=== PATIENT | female | born 1960 | race Caucasian/White ===

== ENCOUNTER 2018-05-12 11:24 | Day surgery (SDC) | payer OTHER ==
[2018-05-11 19:06] VITALS: BMI 24.6
[2018-05-12 12:21] VITALS: BP 147/79; PULSE 82; TEMP 98.4
[2018-05-12] MEDS ORDERED: BENZOIN TINCTURE SWABSTICK TP ONE (13:26)
[2018-05-12] MEDS ORDERED: HEPARIN NA (PORCINE) 5,000 UNITS/ML 1ML VIAL ONE (13:26)
[2018-05-12] MEDS ORDERED: THROMBIN (BOVINE) 5,000 UNIT VIAL TP ONE (13:26)
[2018-05-12 13:56] LABS: HEMATOCRIT 39.5 % (32.4-45.2); HEMOGLOBIN 12.9 GM/dL (10.7-15.3); MCH 28.8 pg (25.7-33.7); MCHC 32.6 g/dl (32.0-36.0); MEAN CELL VOLUME 88.3 fl (80-96); MEAN PLT VOLUME 9.4 fl (7.5-11.1); PLATELET COUNT 301 K/MM3 (134-434); RBC 4.47 M/mm3 (3.60-5.2); RDW 13.8 % (11.6-15.6); WHITE BLOOD COUNT 9.4 K/mm3 (4.0-10.0)
--- NOTE | 2018-05-12 15:57 | PN ---
Progress Note (short form) - Note Progress Note: In full agreement with anesthesiology team, patient's case is cancelled due to insufficient pre-op cardiac workup. Pt. has known history of cardiac event. Pt. will obtain full cardiac clearance as an outpatient and today's surgical case will be re-scheduled. Enrique Arellano MD (Orthopaedic Surgery).
[2018-05-12 16:06] LABS: INR 0.94 (0.83-1.09); PROTHROMBIN TIME (PATIENT) 11.1 SEC (9.7-13.0)
[2018-05-12 16:41] LABS: ALBUMIN 3.9 g/dl (3.4-5.0); ALK PHOS 117 U/L (45-117); ANION GAP 6 MMOL/L (8-16); BILIRUBIN,TOTAL 0.4 mg/dL (0.2-1); BLOOD UREA NITROGEN 13 mg/dL (7-18); CALCIUM 9.2 mg/dL (8.5-10.1); CHLORIDE 107 mmol/L (98-107); CO2 26 mmol/L (21-32); CREATININE 0.5 mg/dL (0.55-1.3); GLUCOSE,RANDOM 111 mg/dL (74-106); POTASSIUM 3.8 mmol/L (3.5-5.1); SGOT/AST 17 U/L (15-37); SGPT/ALT 29 U/L (13-61); SODIUM 139 mmol/L (136-145); TOT PROT 7.5 g/dl (6.4-8.2)
== END 2018-05-12 15:01 | disposition home or self-care (01) | DRG 552 ==
LOC: UNDOADMIN 11:24 → JASUSAT 11:24 → JSAMEDAYSX 11:24 → EDSTATUS 13:15 → JASUSAT 15:01 → UNDODISIN 15:01
PROVIDERS: ATTEND Orthopaedic Surgery Adult Reconstructive Orthopaedic Surgery
PROC: 3E013GC Introduction of Other Therapeutic Substance into Subcutaneous Tissue, Percutaneous Approach (ICD-10-PCS; principal; 2018-05-12)
DX: Z53.8 Procedure and treatment not carried out for other reasons (principal)
CPT/HCPCS: 36415; 80053; 82962; 85027; 85610; 86850; 86900; 86901; J1644

== ENCOUNTER 2018-05-24 10:12 | Inpatient (IN) | payer OTHER ==
[2018-05-20 10:17] VITALS: BMI 24.6
[2018-05-24] MEDS ORDERED: THROMBIN (BOVINE) 5,000 UNIT VIAL TP ONE ×4 (10:56→16:11)
[2018-05-24] MEDS ORDERED: HEPARIN NA (PORCINE) 5,000 UNITS/ML 1ML VIAL ONE (11:17)
[2018-05-24] MEDS ORDERED: SUCCINYLCHOLINE CHLORIDE 200 MG/10 ML VIAL ONE (12:54)
[2018-05-24] MEDS ORDERED: PROPOFOL 20 ML ONE ×15 (12:54→15:31)
[2018-05-24] MEDS ORDERED: fentaNYL CITRATE 250 MCG/5 ML VIAL ONE ×2 (12:54→15:34)
[2018-05-24] MEDS ORDERED: MIDAZOLAM HCL 2 MG/2 ML SINGLE DOSE VIAL ONE (12:59)
[2018-05-24] MEDS ORDERED: ceFAZolin SODIUM 1 GM VIAL IVPB ONE (13:15)
[2018-05-24] MEDS ORDERED: VANCOMYCIN 1,000 MG VIAL (RESTRICTED TO ID ONLY) IVPB ONE (13:15)
[2018-05-24] MEDS ORDERED: ceFAZolin SODIUM 1 GM VIAL ONE ×2 (13:21)
[2018-05-24] MEDS ORDERED: TRANEXAMIC ACID 1000 MG/10 ML VIAL ONE (13:22)
[2018-05-24] MEDS ORDERED: VANCOMYCIN 1,000 MG VIAL (RESTRICTED TO ID ONLY) ONE (13:22)
[2018-05-24] MEDS ORDERED: ONDANSETRON 4 MG/2 ML VIAL IVPUSH PRN ×2 (14:31→17:20)
[2018-05-24] MEDS ORDERED: PROMETHAZINE HCL 25 MG/1 ML VIAL IVPUSH PRN (14:31)
[2018-05-24] MEDS ORDERED: LACTATED RINGERS SOLUTION 1,000 ML IV SCH ×2 (14:45→17:30)
[2018-05-24] MEDS ORDERED: HYDROmorphone *PCA* 10MG/50ML DISP.SYRIN PCA SCH (14:45)
--- NOTE | 2018-05-24 17:14 | PN ---
Progress Note (short form) - Note Progress Note: 58F s/p C5-C6, C6-C7 anterior cervical discectomy and fusion POD #0. -Admit to ICU x 24 hrs. for airway observation; OK to discharge home or downgrade to floor 05/25/2018 if airway stable. -Maintain head of bed 45-60 degrees. -Pain medication: per anaesthesia team; no TEACHER PRIVATE; NO NSAID's. -DVT PPx: -Mechanical only: PATRICIA's, SCD's. -Post-op Ancef x 2 doses. -f/u AM labs. -Incentive spirometry. -PT/OT/Rehab, OOB. -WBAT B/L UE & LE. -d/c Arzola catheter at midnight; f/u TOV (8 hours max). -Keep dressing clean & dry. -No heavy lifting, bending or twisting. -Advance diet as tolerated. -B/L UE & LE NV checks. -Care per ICU & primary medical hospitalist teams. -Discharge planning: f/u [facility] [place] office Thursday06/04/2018; call for appointment; . Enrique Arellano MD (Orthopaedic Surgery).
--- NOTE | 2018-05-24 17:19 | OP ---
Operative Note - Note: Operative Date: 05/24/18 Pre-Operative Diagnosis: 1. Intervertebral disc disorder C5-C6, C6-C7. 2. Cervical spinal stenosis C5-C7. 3. Radiculopathy. 4. Myelopathy Operation: 1. C4-C5, C5-C6 discectomies. 2. C4, C5, C6 partial corpectomies. 3. C4-C5, C5-C6 mechanical devices. 4. C4-C5, C5-C6 arthrodesis. 5. C4-C6 anterior instrumentation. 6. Bone autograft. 7. Bone allograft. 8. Intra- operative fluoroscopy. 9. Intra-operative neural monitoring Post-Operative Diagnosis: Same as Pre-op Surgeon: Enrique Arellano Business Operations Manager: Francisco Javier Arellano Anesthesiologist/HAND I TUBE BENDER: Dwayne Weir Anesthesia: General Specimens Removed: C5-C6, C6-C7 disc Estimated Blood Loss (mls): 75 Fluid Volume Replaced (mls): 1,400 (Crystalloid) Operative Report Dictated: Yes
[2018-05-24] MEDS ORDERED: traMADol HCL 50 MG TABLET PO PRN (17:20)
[2018-05-24] MEDS ORDERED: oxyCODONE HCL 5 MG TABLET PO PRN ×2 (17:20)
--- NOTE | 2018-05-24 17:54 | CONSULT ---
Consultation: REQUESTING PROVIDER: CONSULT REQUEST: post-operative observation HISTORY OF PRESENT ILLNESS: The patient is a 58F w/ a history of HLD who presented for planned surgery. The patient is s/p C5-C6, C6-C7 anterior cervical discectomy and fusion. She currently reports that her pain is well controlled. She denies any weakness or acute change in sensation. Denies recent illness, fevers/chills, vision changes, chest pain, SOB, N/V/C/D. REVIEW OF SYSTEMS: GENERAL/CONSTITUTIONAL: No fever or chills. No weakness HEAD, EYES, EARS, NOSE AND THROAT: No change in vision. No ear pain or discharge. No sore throat CARDIOVASCULAR: No chest pain or shortness of breath RESPIRATORY: Denies cough, hemoptysis GASTROINTESTINAL: No nausea, vomiting, diarrhea or constipation GENITOURINARY: No dysuria, frequency, or change in urination SKIN: No rash NEUROLOGIC: No headache, vertigo, loss of consciousness, or change in strength/ sensation ENDOCRINE: No increased thirst. No abnormal weight change HEMATOLOGIC/LYMPHATIC: No anemia, easy bleeding, or history of blood clots ALLERGIC/IMMUNOLOGIC: No hives or skin allergy PHYSICAL EXAMINATION Vital Signs - 24 hr 05/24/18 11:04 Temperature 98.3 F Pulse Rate 83 Respiratory 20 Rate Blood Pressure 152/85 O2 Sat by Pulse 100 Oximetry (%) GENERAL: Awake, alert, in no acute distress HEAD: No signs of trauma, normocephalic, atraumatic EYES: PERRLA, EOMI, sclera anicteric, conjunctiva clear ENT: Hearing grossly normal, nares patent, oropharynx clear without exudates. Moist mucosa LUNGS: No distress, clear to auscultation bilaterally HEART: Regular rate and rhythm, normal S1 and S2, no murmurs appreciated, peripheral pulses normal and equal bilaterally ABDOMEN: Soft, nontender, normoactive bowel sounds. No guarding, no rebound EXTREMITIES : Moves all extremities independently. Strength 5/5 throughout. NEUROLOGICAL: Sensation to light tough intact in BUE/BLE and equal SKIN: Warm, Dry, surgical dressing in place (C/D/I) Laboratory Results - last 24 hr 05/24/18 05/24/18 10:43 11:29 POC Glucometer 125 Blood Type O POSITIVE Antibody Screen Negative Active Medications Generic Name Dose Route Start Last Admin Trade Name Freq PRN Reason Stop Dose Admin Acetaminophen 1,000 mg 05/24/18 17:30 Ofirmev Injection - IVPB 05/25/18 09:31 Q8H [facility] Amitriptyline HCl 10 mg 05/24/18 22:00 Elavil - PO HS [facility] Atorvastatin Calcium 20 mg 05/25/18 22:00 Lipitor - PO HS [facility] Fentanyl 50 mcg 05/24/18 14:31 Sublimaze Injection - IVPUSH 05/25/18 03:00 [id number] PRN PAIN-PACU ORDER X 4 DOSES ONLY Hydromorphone HCl 10 mg 05/24/18 14:45 Dilaudid [employer] Yardperson - SUPPLEMENTAL NURSE 05/31/18 14:33 SUPPLEMENTAL NURSE [facility] Protocol Lactated Ringer's 1,000 mls @ 125 mls/hr 05/24/18 17:30 Lactated Ringers Solution IV ASDIR [facility] Cefazolin Sodium/Dextrose 2 gm in 50 mls @ 100 mls/hr 05/24/18 20:00 Ancef 2 Gm Premixed Ivpb - IVPB 05/25/18 04:29 Q8H [facility] Letrozole 2.5 mg 05/25/18 10:00 Femara - PO DAILY [facility] Non-Formulary Medication 300 mg 05/25/18 10:00 Canagliflozin [Invokana] PO DAILY [facility] Ondansetron HCl 4 mg 05/24/18 14:31 Zofran Injection IVPUSH 05/25/18 03:00 Q6H PRN NAUSEA AND/OR VOMITING Ondansetron HCl 4 mg 05/24/18 17:20 Zofran Injection IVPUSH Q6H PRN NAUSEA AND/OR VOMITING Oxycodone HCl 5 mg 05/24/18 17:20 Roxicodone - PO Q4H PRN PAIN LEVEL 4-6 Oxycodone HCl 10 mg 05/24/18 17:20 Roxicodone - PO Q4H PRN PAIN LEVEL 7 - 10 Promethazine HCl 12.5 mg 05/24/18 14:31 Phenergan Injection - IVPUSH 05/25/18 03:00 Q6H PRN NAUSEA-FOR RESCUE AFTER 15 MIN Topiramate 25 mg 05/24/18 22:00 Topamax - PO HS [facility] Tramadol HCl 50 mg 05/24/18 17:20 Ultram - PO Q6H PRN PAIN LEVEL 1-3 ASSESSMENT/PLAN: The patient is a 58F s/p C5-C6, C6-C7 anterior cervical discectomy and fusion on 05/24/2018 w/ Dr. Arellano s/p C5-C6, C6-C7 anterior cervical discectomy and fusion -Maintain head of bed 45-60 degrees -Post-op Ancef x 2 doses -Incentive spirometry -B/L UE & LE NV checks -Keep dressing clean & dry Neuro Acute post-operative pain -No NSAIDs -Remainder per Anesthesia CV HLD -Home statin restarted PULM Breathing comfortably on room air, CTM GI Nutrition -Advance as tolerated Arzola in place -D/C at midnight, f/u TOV (8hr max) HEME f/u AM labs No clinical signs of anemia DVT Ppx -Mechanical only (TEDs, SCDs) ID -Post-op abx per Surgery MSK -PT/OT/Rehab, OOB -WBAT B/L UE & LE -No heavy lifting, bending or twisting Dispo: Patient to be in ICU tonight -Discharge planning: f/u [facility] [place] office Thursday06/04/2018; call for appointment; . Visit type - Emergency Visit Emergency Visit: Yes ED Registration Date: 05/24/18 Care time: The patient presented to the Emergency Department on the above date and was hospitalized for further evaluation of their emergent condition. - New Patient This patient is new to me today: Yes Date on this admission: 05/24/18 - Critical Care Critical Care patient: Yes Total Critical Care Time (in minutes): 35 Critical Care Statement: The care of this patient involved high complexity decision making to prevent further life threatening deterioration of the patient 's condition and/or to evaluate & treat vital organ system(s) failure or risk of failure.
[2018-05-24] MEDS: ACETAMINOPHEN 1000 MG/100 ML VIAL (NON FORMULARY) IVPB SCH (18:23)
[2018-05-24] MEDS ORDERED: ceFAZolin 2 GRAM PREMIX BAG IVPB SCH (20:00)
[2018-05-24] MEDS ORDERED: PT OWN MED DRAWER 7, Y5N ONE (21:00)
[2018-05-24] MEDS: CEFAZOLIN 2 GM/D5W 2 GM/50 ML ML IVPB SCH (21:43)
--- NOTE | 2018-05-24 21:51 | OP ---
DATE OF OPERATION: 05/24/2018 SURGEON: Enrique Arellano MD POSTDOCTORAL RESEARCH FELLOW: Francisco Javier Arellano MD PREOPERATIVE DIAGNOSIS: 1. C5-C6 & C6-C7 intervertebral disk disorders with associated A. Myelopathy. B. Radiculopathy. 2. Cervical spinal stenosis with neurogenic claudication. 3. Cervical kyphosis. 4. Segmental instability. 5. Disk osteophyte complexes C5-C6, C6-C7. POSTOPERATIVE DIAGNOSIS: 1. C5-C6 & C6-C7 intervertebral disk disorders with associated A. Myelopathy. B. Radiculopathy. 2. Cervical spinal stenosis with neurogenic claudication. 3. Cervical kyphosis. 4. Segmental instability. 5. Disk osteophyte complexes C5-C6, C6-C7. SURGICAL PROCEDURE: 1. C5-C6, C6-C7 discectomies. 2. C5, C6, C7 partial corpectomies. 3. Insertion of biomechanical devices C5-C6, C6-C7. 4. C5-C6, C6-C7 anterior arthrodesis. 5. C5-C7 anterior instrumentation. 6. Bone autograft. 7. Bone allograft. 8. Intraoperative fluoroscopy. 9. Intraoperative neuromonitoring. ANESTHESIOLOGIST: Dwayne Weir M.D. ANESTHESIA: General endotracheal tube anesthesia. POSITION: Supine. INCISION: Right oblique anterior. ESTIMATED BLOOD LOSS: 75cc. INTRAVENOUS FLUID: Crystalloid, 1.4L. SPECIMENS: C5-C6, C6-C7 discs. DRAINS: None. COMPLICATIONS: None. URINE OUTPUT: See anesthesia record. BACTERIOLOGY: None. CLOSURE: 2-0 Vicryl and 3-0 Biosyn absorbable suture. INDICATIONS: The patient is a 58-year-old female who was indicated for anterior cervical decompression and instrumented fusion to prevent the progression of already worsening neurological decline. The patient was identified in the holding area by her arm band. A long discussion was held with the patient regarding the risks, benefits, and alternatives of the above-named procedure. The risks include, but are not limited to: Pain, bleeding, infection, damage to surrounding structures (including nerves, blood vessels, skin, ligaments, tendons, and bone), dysphagia, dysphonia, nerve palsy, wound complications, pseudarthrosis, failure of fusion, failure of hardware/implants/reduction, need for further surgery, blood clots, myocardial infarction, pulmonary embolism, cerebrovascular event, anesthesia complications, neurological injury, loss of function, and . Benefits as mentioned above. Alternatives include no surgery. All questions were answered. The patient understood and agreed to the procedure. Informed consent was obtained, witnessed, and verified. The patient was taken to the operating room after being seen by the anesthesia and nursing staff. PROCEDURE: The patient was brought into the operating room, placed on the OR table and secured with a safety strap. Consent and the operative site was again verified with the patient and nursing and anesthesia staff. Anesthesia was then administered without complications including 2 g of IV Ancef, 1 g of IV vancomycin, and 1 g of TXA. A time-out was then done led by , the attending surgeon. The patient was positioned in the supine position with arms tucked and placed under gentle traction using tape over her shoulders. All bony prominences were very well padded. A bump was placed beneath the scapulae to facilitate extension of the patients neck. The cricothyroid interval was palpated, and a deep neck crease in the lines of Tyler just below this level was targeted for incision. A C-arm fluoroscopy unit was positioned perpendicularly to the table and maintained at the level of the head, except when needed. Intra-operative neural monitoring revealed no change between pre- and post- positional SSEP & MEP baseline readings. The operative site was then prepped and draped in the standard sterile fashion using betadine prep and scrub, wiped off with alcohol, and Duraprep applied. Pre-operative imaging was available for intra-operative evaluation. Time-out was again done, and the case began. An oblique anterior incision was made on the right side of the patients neck in the lines of Tyler in standard fashion. Dissection was carried through the investing layer of fascia and finger palpation was used to create a plane lateral to the strap muscles between the carotid sheath and the viscera. Next, the esophagus and trachea were visualized as was the carotid sheath. Hand-held retractors were used to retract these structures safely out of the way, allowing direct access to the anterior cervical spine. The prevertebral fascia overlying the anterior cervical spine was then split using peanut swabs. An 18-gauge spinal needle was bent and used to localize the C4-C5 disc space under fluoroscopy. This helped us target the indicated surgical level. Next, the medial borders of the Longus Coli musculature were gently released over the anterolateral borders of the C5, C6, and C7 vertebral bodies and the C5 -C6 & C6-C7 disc spaces using monopolar electrocautery. A self-retaining retractor system was used with the teeth of the blades retracting the belly of the longus coli muscles, and with the retractors themselves safely retracting the carotid sheath laterally and viscera medially. A 12mm Ute pin was then placed into the center of the vertebral body of C5 & into the caudal aspect of the C6 vertebral body. The Ute pin placement was confirmed via fluorscopy. A Ute pin distractor system was applied with no distraction at this stage. Additionally, the distractor barrels served as superior and inferior soft tissue retractors. The microscope was then introduced. Using monopolar electrocautery, the annulus of the C5-C6 disc was incised. The disc was morselized using a curette and excised using a pituitary rongeur. Next, a 40mm rough mili-tipped tracee was used to perform partial corpectomies of the caudal C5 vertebral body and the cephalad C6 vertebral body. The resection of most remaining bone, and the posterior longitudinal ligament (PLL) , was achieved utilizing Kerrison rongeur upcuts. A small, angled, ball-tipped probe was utilized to ensure that all PLL complex was free from adhesion to the theca prior to excision. There was no evidence of ossification of the posterior longitudinal ligament (OPLL). The ball-tipped probe was also used to ensure that the bilateral C5-C6 neuroforaminae were patent. Our decompression of the cervical spine was successfully achieved. At this point, gentle distraction was applied to the Ute pin distractor. Next, trial implants were placed into the defect space and a size 7 RTI Fortilink cage was then selected to fit the distracted space. The cage was filled with a combination of autologous bone shavings and demineralized bone matrix putty. The cage was then gently tapped into position. This completed the anterior arthrodesis. Ute pin distraction was released, allowing ligamentotaxis to provide a snug interference fit of the cage. This was ensured by using a cage-brooks. The Ute pins were removed and the holes that they created were plugged with bone wax. A 12mm Ute pin was then placed into the center of the vertebral bodies of C6 & C7. The Ute pin placement could not be confirmed via fluorscopy due to visual obstruction caused by the shoulders. A Ute pin distractor system was applied with no distraction at this stage. Additionally, the distractor barrels served as superior and inferior soft tissue retractors. The microscope was again introduced. Using monopolar electrocautery, the annulus of the C6-C7 disc was incised. The disc was morselized using a curette and excised using a pituitary rongeur. Next, a 40mm rough mili-tipped tracee was used to perform partial corpectomies of the caudal C6 vertebral body and the cephalad C7 vertebral body. The resection of most remaining bone, and the posterior longitudinal ligament (PLL) , was achieved utilizing Kerrison rongeur upcuts. A small, angled, ball-tipped probe was utilized to ensure that all PLL complex was free from adhesion to the theca prior to excision. There was no evidence of ossification of the posterior longitudinal ligament (OPLL). The ball-tipped probe was also used to ensure that the bilateral C6-C7 neuroforaminae were patent. Our decompression of the cervical spine was successfully achieved. At this point, gentle distraction was applied to the Ute pin distractor. Next, trial implants were placed into the defect space and a size 6 RTI Fortilink cage was then selected to fit the distracted space. The cage was filled with a combination of autologous bone shavings and demineralized bone matrix putty. The cage was then gently tapped into position. This completed the anterior arthrodesis. Ute pin distraction was released, allowing ligamentotaxis to provide a snug interference fit of the cage. This was ensured by using a cage-brooks. A 3-level, 29mm plate was utilized with 6 screws (2 in each vertebral body from C5-C7) measuring 12 mm to provide solid fixation. This, too, was demonstrated with a plate-brooks once all instrumentation was satisfactorily seated. The screws were then locked using the plate-screw locking mechanism. Fluoroscopic images in the AP and lateral plane showed implants to be in good position and with good overall alignment of the cervical spine. Copious irrigation was performed, hemostasis was assured, and the wound was closed primarily using 2-0 Vicryl and 3-0 Biosyn sutures. A sterile compressive dressing was applied. Sponge and needle counts were correct at the end of the case, and I, the attending surgeon, was present and scrubbed throughout the case. The patient was then extubated by the anesthesia staff without incident or complications and was then transferred to the recovery room in stable condition having tolerated the procedure well. OVERALL COMMENTS: The case went well. MEP & SSEP signals improved relative to baseline at the end of the case. MD TYRONE Almonte/[id number] MTDD
[2018-05-24] MEDS ORDERED: AMITRIPTYLINE HCL 10 MG TABLET (FP) PO SCH (22:00)
[2018-05-24] MEDS ORDERED: TOPIRAMATE 25 MG TABLET (FP) PO SCH (22:00)
[2018-05-25] MEDS: ACETAMINOPHEN 1000 MG/100 ML VIAL (NON FORMULARY) IVPB SCH ×2 (02:19→09:49)
[2018-05-25] MEDS: CEFAZOLIN 2 GM/D5W 2 GM/50 ML ML IVPB SCH (04:17)
[2018-05-25 05:57] LABS: HEMATOCRIT 36.8 % (32.4-45.2); HEMOGLOBIN 11.7 GM/dL (10.7-15.3); MCH 28.6 pg (25.7-33.7); MCHC 31.7 g/dl (32.0-36.0); MEAN CELL VOLUME 90.1 fl (80-96); MEAN PLT VOLUME 8.6 fl (7.5-11.1); PLATELET COUNT 257 K/MM3 (134-434); RBC 4.08 M/mm3 (3.60-5.2); RDW 13.6 % (11.6-15.6); WHITE BLOOD COUNT 9.1 K/mm3 (4.0-10.0)
[2018-05-25 06:23] LABS: ANION GAP 9 MMOL/L (8-16); BLOOD UREA NITROGEN 11 mg/dL (7-18); CALCIUM 8.3 mg/dL (8.5-10.1); CHLORIDE 100 mmol/L (98-107); CO2 27 mmol/L (21-32); CREATININE 0.5 mg/dL (0.55-1.3); GLUCOSE,RANDOM 134 mg/dL (74-106); POTASSIUM 3.9 mmol/L (3.5-5.1); SODIUM 136 mmol/L (136-145)
--- NOTE | 2018-05-25 08:52 | PN ---
Physical Exam: SUBJECTIVE: Patient seen and examined at bedside. Had one episode of vomiting this AM, feels nauseous. Pain controlled. Ambulating and urinating w/o phipps. No flatus or BM as yet. OBJECTIVE: Vital Signs Period Temp Pulse Resp BP Sys/Agee Pulse Ox Last 24 Hr 97.8 F-99.6 F 67-92 12-20 111-157/53-85 95-100 GENERAL: A&Ox3, NAD HEAD: NC/AT EYES: PERRLA, EOMI, sclera anicteric, conjunctiva clear ENT: MMM LUNGS: CTA b/l HEART: RRR no m/r/g ABDOMEN: distant bs, soft, NT, ND EXTREMITIES : 2+ pulses, wwp, no edema, no calf tenderness NEUROLOGICAL: microwave radio technician, motor, sensory systems w/o focal deficit SKIN: Warm, Dry, surgical dressing in place (C/D/I) Laboratory Results - last 24 hr 05/24/18 05/24/18 05/25/18 10:43 11:29 05:15 WBC 9.1 RBC 4.08 Hgb 11.7 Hct 36.8 MCV 90.1 MCH 28.6 MCHC 31.7 L RDW 13.6 Plt Count 257 MPV 8.6 Sodium Potassium Chloride Carbon Dioxide Anion Gap BUN Creatinine Creat Clearance w eGFR POC Glucometer 125 Random Glucose Calcium Blood Type O POSITIVE Antibody Screen Negative 05/25/18 05:15 WBC RBC Hgb Hct MCV MCH MCHC RDW Plt Count MPV Sodium 136 Potassium 3.9 Chloride 100 Carbon Dioxide 27 Anion Gap 9 BUN 11 Creatinine 0.5 L Creat Clearance w eGFR > 60 POC Glucometer Random Glucose 134 H Calcium 8.3 L Blood Type Antibody Screen Active Medications Generic Name Dose Route Start Last Admin Trade Name Freq PRN Reason Stop Dose Admin Acetaminophen 1,000 mg 05/24/18 17:30 05/25/18 02:19 Ofirmev Injection - IVPB 05/25/18 09:31 1,000 mg Q8H [facility] Administration Amitriptyline HCl 10 mg 05/24/18 22:00 05/24/18 21:43 Elavil - PO 10 mg HS [facility] Administration Atorvastatin Calcium 20 mg 05/25/18 22:00 Lipitor - PO HS [facility] Hydromorphone HCl 10 mg 05/24/18 14:45 05/24/18 20:30 Dilaudid Clam Digger - CAREER COACH 05/31/18 14:33 10 mg CAREER COACH [facility] Administration Protocol Lactated Ringer's 1,000 mls @ 125 mls/hr 05/24/18 17:30 05/24/18 18:13 Lactated Ringers Solution IV 125 mls/hr ASDIR [facility] Administration Letrozole 2.5 mg 05/25/18 10:00 Femara - PO DAILY [facility] Non-Formulary Medication 300 mg 05/25/18 10:00 Canagliflozin [Invokana] PO DAILY [facility] Ondansetron HCl 4 mg 05/24/18 17:20 05/25/18 04:00 Zofran Injection IVPUSH 4 mg Q6H PRN Administration NAUSEA AND/OR VOMITING Oxycodone HCl 5 mg 05/24/18 17:20 Roxicodone - PO Q4H PRN PAIN LEVEL 4-6 Oxycodone HCl 10 mg 05/24/18 17:20 Roxicodone - PO Q4H PRN PAIN LEVEL 7 - 10 Topiramate 25 mg 05/24/18 22:00 05/24/18 21:43 Topamax - PO 25 mg HS [facility] Administration Tramadol HCl 50 mg 05/24/18 17:20 Ultram - PO Q6H PRN PAIN LEVEL 1-3 ASSESSMENT/PLAN: 58 y/o F POD 1 s/p C5-C6, C6-C7 anterior cervical discectomy and fusion on 05/24 w/ Dr. Arellano #POD 1 s/p C5-C6, C6-C7 anterior cervical discectomy and fusion -Maintain head of bed 45-60 degrees -Post-op Ancef x 2 doses -IS -neuro checks -Keep dressing clean & dry -CAREER COACH, tramadol, oxy 5, oxy 10 per pain scale -no NSAIDs -Zofran PRN for nausea, obtain new EKG -home elavil, letrozole, topiramate, canagliflozin -diabetic soft diet, adv as tolerated -phipps d/c'd -mechanical DVT PPx -PT/OT/Rehab, OOB -WBAT B/L UE & LE -No heavy lifting, bending or twisting #dispo: transfer to med/surg Visit type - Emergency Visit Emergency Visit: No - New Patient This patient is new to me today: Yes Date on this admission: 05/25/18 - Critical Care Critical Care patient: Yes Total Critical Care Time (in minutes): 40 Critical Care Statement: The care of this patient involved high complexity decision making to prevent further life threatening deterioration of the patient 's condition and/or to evaluate & treat vital organ system(s) failure or risk of failure.
[2018-05-25] MEDS ORDERED: PT OWN MED DRAWER 7, Y5N ONE ×2 (09:36→21:58)
[2018-05-25] MEDS: ONDANSETRON 4 MG/2 ML VIAL IVPUSH PRN ×2 (09:50→14:28)
[2018-05-25] MEDS ORDERED: PATIENT'S OWN MEDICATION (NON-FORMULARY) (Canagliflozin [Invokana] 300 MG) PO SCH (10:00)
[2018-05-25] MEDS ORDERED: LETROZOLE 2.5 MG TABLET (FP) PO SCH (10:00)
--- NOTE | 2018-05-25 10:05 | PN ---
Teaching Attending Note Name of Resident: Enrique Hendrix ATTENDING PHYSICIAN STATEMENT I saw and evaluated the patient. I reviewed the resident's note and discussed the case with the resident. I agree with the resident's findings and plan as documented. SUBJECTIVE: Patient seen and examined in the ICU. Awake and alert. Reports the pain is adequately controlled. (+) Nausea and has not been able to take in PO intake. Intake & Output 05/22/18 05/23/18 05/24/18 05/25/18 23:59 23:59 23:59 23:59 Intake Total 1400 1700 Output Total 275 760 Balance 1125 940 Last Vital Signs Temp Pulse Resp BP Pulse Ox 98.3 F 78 12 139/60 98 05/25/18 04:00 05/25/18 08:27 05/25/18 08:30 05/25/18 08:27 05/25/18 08:30 Active Medications Amitriptyline HCl (Elavil -) 10 mg PO HS [facility] Last Admin: 05/24/18 21:43 Dose: 10 mg Atorvastatin Calcium (Lipitor -) 20 mg PO HS [facility] Hydromorphone HCl (Dilaudid Mattress Specialist -) 10 mg HOUSE SERVANT HOUSE SERVANT [facility]; Protocol Stop: 05/31/18 14:33 Last Admin: 05/24/18 20:30 Dose: 10 mg Lactated Ringer's (Lactated Ringers Solution) 1,000 mls @ 125 mls/hr IV ASDIR EZEKIEL Last Admin: 05/24/18 18:13 Dose: 125 mls/hr Letrozole (Femara -) 2.5 mg PO DAILY [facility] Last Admin: 05/25/18 09:49 Dose: 2.5 mg Non-Formulary Medication (Canagliflozin [Invokana]) 300 mg PO DAILY [facility] Ondansetron HCl (Zofran Injection) 4 mg IVPUSH Q4H PRN PRN Reason: NAUSEA AND/OR VOMITING Last Admin: 05/25/18 09:50 Dose: 4 mg Oxycodone HCl (Roxicodone -) 5 mg PO Q4H PRN PRN Reason: PAIN LEVEL 4-6 Oxycodone HCl (Roxicodone -) 10 mg PO Q4H PRN PRN Reason: PAIN LEVEL 7 - 10 Topiramate (Topamax -) 25 mg PO HS [facility] Last Admin: 05/24/18 21:43 Dose: 25 mg Tramadol HCl (Ultram -) 50 mg PO Q6H PRN PRN Reason: PAIN LEVEL 1-3 GENERAL: Awake, alert, in no acute distress HEAD: No signs of trauma, normocephalic, atraumatic EYES: PERRLA, EOMI, sclera anicteric, conjunctiva clear ENT: Intact anterior dressing, dry, no stridor LUNGS: clear to auscultation bilaterally HEART: Regular rate and rhythm, normal S1 and S2, no murmurs appreciated, peripheral pulses normal and equal bilaterally ABDOMEN: Soft, nontender, normoactive bowel sounds. No guarding, no rebound EXTREMITIES : (-) edema NEUROLOGICAL: Non-focal SKIN: Warm, Dry, surgical dressing in place (C/D/I) ASSESSMENT/PLAN: Intervertebral disc disorder C5-C6, C6-C7. Cervical spinal stenosis C5-C7. Radiculopathy Myelopathy History of OSAS: not compliant with PAP therapy POD# 1: 1. C4-C5, C5-C6 discectomies. 2. C4, C5, C6 partial corpectomies. 3. C4-C5, C5-C6 mechanical devices. 4. C4-C5, C5-C6 arthrodesis. 5. C4-C6 anterior instrumentation. 6. Bone autograft. 7. Bone allograft. 8. Intra-operative fluoroscopy. 9. Intra-operative neural monitoring PLAN: Pain control Incentive Spirometry Patient is non-compliant with PAP therapy: needs formal re-evaluation of OSAS O2 as needed Check EKG Zofran PRN PO as tolerated Neuro checks D/C planning per Ortho / medical team Dr Moctezuma
--- NOTE | 2018-05-25 14:46 | PN ---
Physical Exam: SUBJECTIVE: Patient seen and examined. Had an episode of vomiting this am, still feels nauseous. Had rice in the am. Ambulated to bathroom to pass urine, yet to pass gas or move bowel. Pt appears to be on PROGRAM AND RESEARCH COORDINATOR pump for pain. Has resolved weakness and resolution of sensory deficit of LUE post op. OBJECTIVE: Vital Signs Period Temp Pulse Resp BP Sys/Agee Pulse Ox Last 24 Hr 97.8 F-99.6 F 67-92 11-20 111-157/53-75 95-98 Vital Signs Temperature 98.8 F 05/25/18 14:00 Pulse Rate 82 05/25/18 14:00 Respiratory Rate 15 05/25/18 14:00 Blood Pressure 151/60 05/25/18 14:00 O2 Sat by Pulse Oximetry (%) 98 05/25/18 08:30 GENERAL: The patient is awake, alert, and fully oriented, in no acute distress. HEAD: Normal with no signs of trauma. EYES: Miosed, but reactive bilaterally ENT: moist mucous membranes, anterior surgical dressing 4x6 cm in lace, dry. NECK: Trachea midline, full range of motion, supple. LUNGS: Breath sounds equal, clear to auscultation bilaterally, no wheezes, no crackles, no accessory muscle use. HEART: Regular rate and rhythm, S1, S2 without murmur, ABDOMEN: Soft, nontender, nondistended, bowel sounds+, no guarding, no rebound, EXTREMITIES: 2+ pulses, warm, well-perfused, no edema. NEUROLOGICAL: Cranial nerves II through XII grossly intact. Muscle strength 5/5 globally, reflexes 2+ globally, equal sensations. Normal speech, gait not observed. PSYCH: Normal mood, normal affect. CBC, BMP 05/25/18 05:15 05/25/18 05:15 Laboratory Results - last 24 hr 05/25/18 05/25/18 05:15 05:15 WBC 9.1 RBC 4.08 Hgb 11.7 Hct 36.8 MCV 90.1 MCH 28.6 MCHC 31.7 L RDW 13.6 Plt Count 257 MPV 8.6 Sodium 136 Potassium 3.9 Chloride 100 Carbon Dioxide 27 Anion Gap 9 BUN 11 Creatinine 0.5 L Creat Clearance w eGFR > 60 Random Glucose 134 H Calcium 8.3 L Active Medications Generic Name Dose Route Start Last Admin Trade Name Freq PRN Reason Stop Dose Admin Amitriptyline HCl 10 mg 05/24/18 22:00 05/24/18 21:43 Elavil - PO 10 mg HS EZEKIEL Administration Atorvastatin Calcium 20 mg 05/25/18 22:00 Lipitor - PO HS EZEKIEL Hydromorphone HCl 10 mg 05/24/18 14:45 05/24/18 20:30 Dilaudid Public Health Administrator - PROGRAM AND RESEARCH COORDINATOR 05/31/18 14:33 10 mg PROGRAM AND RESEARCH COORDINATOR EZEKIEL Administration Protocol Lactated Ringer's 1,000 mls @ 125 mls/hr 05/24/18 17:30 05/24/18 18:13 Lactated Ringers Solution IV 125 mls/hr ASDIR EZEKIEL Administration Letrozole 2.5 mg 05/25/18 10:00 05/25/18 09:49 Femara - PO 2.5 mg DAILY EZEKIEL Administration Non-Formulary Medication 300 mg 05/25/18 10:00 Canagliflozin [Invokana] PO DAILY EZEKIEL Ondansetron HCl 4 mg 05/25/18 09:26 05/25/18 14:28 Zofran Injection IVPUSH 4 mg Q4H PRN Administration NAUSEA AND/OR VOMITING Oxycodone HCl 5 mg 05/24/18 17:20 Roxicodone - PO Q4H PRN PAIN LEVEL 4-6 Oxycodone HCl 10 mg 05/24/18 17:20 Roxicodone - PO Q4H PRN PAIN LEVEL 7 - 10 Topiramate 25 mg 05/24/18 22:00 05/24/18 21:43 Topamax - PO 25 mg HS EZEKIEL Administration Tramadol HCl 50 mg 05/24/18 17:20 Ultram - PO Q6H PRN PAIN LEVEL 1-3 ASSESSMENT/PLAN: Pt is a 58yo F with PMHx of HTN, DM, L breast Ca (Stage 1), s/p radiation therapy, HLD who presented for elective 1. C4-C5, C5-C6 discectomies. 2. C4, C5, C6 partial corpectomies. 3. C4-C5, C5-C6 mechanical devices. 4. C4-C5, C5- C6 arthrodesis. 5. C4-C6 anterior instrumentation. 6. Bone autograft. 7. Bone allograft. 8. Intra-operative fluoroscopy. 9. Intra-operative neural monitoring POD: 1(Operative Date: 05/24/18) Surgery: (1. C4-C5, C5-C6 discectomies. 2. C4, C5, C6 partial corpectomies. 3. C4-C5, C5-C6 mechanical devices. 4. C4-C5, C5-C6 arthrodesis. 5. C4-C6 anterior instrumentation. 6. Bone autograft. 7. Bone allograft. 8. Intra- operative fluoroscopy. 9. Intra-operative neural monitoring) Following Pre-Operative Diagnosis: 1. Intervertebral disc disorder C5-C6, C6- C7. 2. Cervical spinal stenosis C5-C7. 3. Radiculopathy. 4. Myelopathy Per Dr Arellano: - Cont pain mx with PROGRAM AND RESEARCH COORDINATOR and PO meds as tolerating -Arzola out- ambulating with assistance - Diet -Per Dr Arellano-OK to discharge home or downgrade to floor 05/25/2018 if airway stable. -Maintain head of bed 45-60 degrees. -Pain medication: per anaesthesia team; no PROGRAM AND RESEARCH COORDINATOR; NO NSAID's. -DVT PPx: -Mechanical only: PATRICIA's, SCD's. -Post-op Ancef x 2 doses. -Cont Incentive spirometry. -PT/OT/Rehab, OOB. -WBAT B/L UE & LE. -Keep dressing clean & dry. -No heavy lifting, bending or twisting. -Advance diet as tolerated. -B/L UE & LE NV checks. -Care per ICU & primary medical hospitalist teams. -Discharge planning: f/u [facility] [place] office Thursday06/04/2018; call for appointment; . Visit type - Emergency Visit Emergency Visit: No - New Patient This patient is new to me today: Yes Date on this admission: 05/25/18 - Critical Care Critical Care patient: Yes Total Critical Care Time (in minutes): 35 Critical Care Statement: The care of this patient involved high complexity decision making to prevent further life threatening deterioration of the patient 's condition and/or to evaluate & treat vital organ system(s) failure or risk of failure. - Discharge Referral Referred to [facility] Med P.C.: No
[2018-05-25] MEDS: LACTATED RINGERS SOLUTION 1,000 ML IV SCH (15:59)
[2018-05-25] MEDS ORDERED: HYDROmorphone *PCA* 10MG/50ML DISP.SYRIN PCA SCH (17:50)
[2018-05-25] MEDS ORDERED: ONDANSETRON 4 MG/2 ML VIAL IVPUSH PRN (17:50)
[2018-05-25] MEDS ORDERED: oxyCODONE HCL 5 MG TABLET PO PRN ×2 (17:50)
--- NOTE | 2018-05-25 19:56 | PN ---
Teaching Attending Note Name of Resident: Kristina Patel ATTENDING PHYSICIAN STATEMENT I saw and evaluated the patient. I reviewed the resident's note and discussed the case with the resident. I agree with the resident's findings and plan as documented. SUBJECTIVE: Patient is c/o having pain but feeling better in general OBJECTIVE: Vital Signs Temperature 98.8 F 05/25/18 14:00 Pulse Rate 92 H 05/25/18 16:00 Respiratory Rate 20 05/25/18 16:00 Blood Pressure 151/58 L 05/25/18 16:00 O2 Sat by Pulse Oximetry (%) 98 05/25/18 08:30 GENERAL: The patient is awake, alert, and fully oriented, in no acute distress. HEAD: Normal with no signs of trauma. EYES: Miosed, but reactive bilaterally ENT: moist mucous membranes, anterior surgical dressing 4x6 cm in lace, dry. NECK: Trachea midline, full range of motion, supple. LUNGS: Breath sounds equal, clear to auscultation bilaterally, no wheezes, no crackles, no accessory muscle use. HEART: Regular rate and rhythm, S1, S2 without murmur, ABDOMEN: Soft, nontender, nondistended, bowel sounds+, no guarding, no rebound, EXTREMITIES: 2+ pulses, warm, well-perfused, no edema. NEUROLOGICAL: Cranial nerves II through XII grossly intact. rest of exam by PSYCH: Normal mood, normal affect. CBCD WBC 9.1 K/mm3 (4.0-10.0) 05/25/18 05:15 RBC 4.08 M/mm3 (3.60-5.2) 05/25/18 05:15 Hgb 11.7 GM/dL (10.7-15.3) 05/25/18 05:15 Hct 36.8 % (32.4-45.2) 05/25/18 05:15 MCV 90.1 fl (80-96) 05/25/18 05:15 MCHC 31.7 g/dl (32.0-36.0) L 05/25/18 05:15 RDW 13.6 % (11.6-15.6) 05/25/18 05:15 Plt Count 257 K/MM3 (134-434) 05/25/18 05:15 MPV 8.6 fl (7.5-11.1) 05/25/18 05:15 CMP Sodium 136 mmol/L (136-145) 05/25/18 05:15 Potassium 3.9 mmol/L (3.5-5.1) 05/25/18 05:15 Chloride 100 mmol/L (98-107) 05/25/18 05:15 Carbon Dioxide 27 mmol/L (21-32) 05/25/18 05:15 Anion Gap 9 MMOL/L (8-16) 05/25/18 05:15 BUN 11 mg/dL (7-18) 05/25/18 05:15 Creatinine 0.5 mg/dL (0.55-1.3) L 05/25/18 05:15 Creat Clearance w eGFR > 60 (>60) 05/25/18 05:15 Random Glucose 134 mg/dL (74-106) H 05/25/18 05:15 Calcium 8.3 mg/dL (8.5-10.1) L 05/25/18 05:15 Current Medications Generic Name Dose Route Start Last Admin Trade Name Freq PRN Reason Stop Dose Admin Amitriptyline HCl 10 mg 05/25/18 22:00 Elavil - PO HS EZEKIEL Atorvastatin Calcium 20 mg 05/25/18 22:00 Lipitor - PO HS EZEKIEL Hydromorphone HCl 10 mg 05/25/18 17:50 Dilaudid Contact Person - SOLUTION PROFESSIONAL 05/31/18 14:33 SOLUTION PROFESSIONAL EZEKIEL Protocol Lactated Ringer's 1,000 mls @ 75 mls/hr 05/25/18 15:44 05/25/18 15:59 Lactated Ringers Solution IV 75 mls/hr ASDIR EZEKIEL Administration Letrozole 2.5 mg 05/26/18 10:00 Femara - PO DAILY [facility] Non-Formulary Medication 300 mg 05/26/18 10:00 Canagliflozin [Invokana] PO DAILY EZKEIEL Ondansetron HCl 4 mg 05/25/18 17:50 05/25/18 18:25 Zofran Injection IVPUSH 4 mg Q4H PRN Administration NAUSEA AND/OR VOMITING Oxycodone HCl 5 mg 05/25/18 17:50 Roxicodone - PO Q4H PRN PAIN LEVEL 4-6 Oxycodone HCl 10 mg 05/25/18 17:50 Roxicodone - PO Q4H PRN PAIN LEVEL 7 - 10 Topiramate 25 mg 05/25/18 22:00 Topamax - PO HS [facility] Home Medications Medication Instructions Recorded Acetaminophen [Tylenol] 1,000 mg PO DAILY 05/11/18 Amitriptyline HCl [Elavil -] 10 mg PO HS 05/11/18 Canagliflozin [Invokana] 300 mg PO DAILY 05/11/18 Letrozole 2.5 mg PO DAILY 05/11/18 Simvastatin 40 mg PO DAILY 05/11/18 Topiramate 25 mg PO HS 05/11/18 Vitamin D - 1.25 mg PO WEEKLY 05/11/18 Ibuprofen/Famotidine [Duexis 1 tab PO DAILY 05/25/18 800-26.6 mg Tablet] Zolpidem Tartrate [Zolpidem 6.25 mg PO HS PRN 05/25/18 Tartrate ER] ASSESSMENT AND PLAN: Pt is a 58yo F with PMHx of HTN, DM, L breast Ca (Stage 1), s/p radiation therapy, HLD who presented for elective 1. C4-C5, C5-C6 discectomies. 2. C4, C5, C6 partial corpectomies. 3. C4-C5, C5-C6 mechanical devices. 4. C4-C5, C5- C6 arthrodesis. 5. C4-C6 anterior instrumentation. 6. Bone autograft. 7. Bone allograft. 8. Intra-operative fluoroscopy. 9. Intra-operative neural monitoring # POD: 1(Operative Date: 05/24/18) s/p C4-C5, C5-C6 discectomies, C4, C5, C6 partial corpectomies, C4-C5, C5-C6 mechanical devices , C4-C5, C5-C6 arthrodesis, C4-C6 anterior instrumentation, Bone autograft, Bone allograft, Intra-operative fluoroscopy and Intra-operative neural monitoring. due to having Intervertebral disc disorder C5-C6, C6-C7., Cervical spinal stenosis C5-C7., Radiculopathy and Myelopathy pain control, incentive spirometer, PT/OT/Rehab, OOB, WBAT B/L UE & LE., No heavy lifting, bending or twisting. DVT Px: PATRICIA's, SCD's only Care per ICU & primary medical hospitalist teams. Discharge planning: f/u [facility] [place] office Thursday06/04/2018; call for appointment; .
[2018-05-25] MEDS ORDERED: AMITRIPTYLINE HCL 10 MG TABLET (FP) PO SCH (22:00)
[2018-05-25] MEDS ORDERED: TOPIRAMATE 25 MG TABLET (FP) PO SCH (22:00)
[2018-05-25] MEDS ORDERED: ATORVASTATIN CA 20 MG TABLET (FP) PO SCH ×2 (22:00)
[2018-05-26 07:48] LABS: BASO % 0.5 % (0-2.0); EOS % 0.1 % (0-4.5); HEMATOCRIT 36.8 % (32.4-45.2); HEMOGLOBIN 11.7 GM/dL (10.7-15.3); LYMPH % 10.3 % (8-40); MCH 28.7 pg (25.7-33.7); MCHC 31.9 g/dl (32.0-36.0); MEAN CELL VOLUME 90.1 fl (80-96); MEAN PLT VOLUME 8.3 fl (7.5-11.1); MONO % 6.5 % (3.8-10.2); NEUT % 82.6 % (42.8-82.8); PLATELET COUNT 299 K/MM3 (134-434); RBC 4.08 M/mm3 (3.60-5.2); RDW 13.7 % (11.6-15.6)
[2018-05-26 08:16] LABS: ANION GAP 14 MMOL/L (8-16); BLOOD UREA NITROGEN 9 mg/dL (7-18); CALCIUM 8.4 mg/dL (8.5-10.1); CHLORIDE 101 mmol/L (98-107); CO2 19 mmol/L (21-32); CREATININE 0.5 mg/dL (0.55-1.3); GLUCOSE,RANDOM 102 mg/dL (74-106); MAGNESIUM 2.2 mg/dL (1.8-2.4); PHOSPHOROUS 3.3 mg/dL (2.5-4.9); POTASSIUM 4.1 mmol/L (3.5-5.1); SODIUM 133 mmol/L (136-145)
--- NOTE | 2018-05-26 08:42 | PN ---
Progress Note (short form) - Note Progress Note: Anesthesiology Pain Service 58 y.o. woman POD#2 s/p ACDF with post-op WATER VALVE MECHANIC. Pt. is AA+O in bed. Though she had vomiting yesterday, today she is able to tolerate some breakfast. She states that she hasn't been using the WATER VALVE MECHANIC as much since yesterday. Pain is present but manageble. VSS. 58 y.o. with stable post-operative course. Will d/c WATER VALVE MECHANIC and start PO pain meds. Pt and RN are amenable to this.
[2018-05-26] MEDS ORDERED: LETROZOLE 2.5 MG TABLET (FP) PO SCH (10:00)
[2018-05-26] MEDS ORDERED: PATIENT'S OWN MEDICATION (NON-FORMULARY) (Canagliflozin [Invokana] 300 MG) PO SCH (10:00)
[2018-05-26] MEDS ORDERED: oxyCODONE HCL 10 MG SUSTAINED ACTING TABLET PO SCH (10:00)
[2018-05-26] MEDS ORDERED: PT OWN MED DRAWER 7, Y5N ONE (11:34)
[2018-05-26] MEDS: LACTATED RINGERS SOLUTION 1,000 ML IV SCH (11:41)
[2018-05-26 17:11] VITALS: BP 142/64; PULSE 105; TEMP 98.6
--- NOTE | 2018-05-26 17:29 | DS ---
Physical Exam: SUBJECTIVE: Patient seen and examined OBJECTIVE: Vital Signs Period Temp Pulse Resp BP Sys/Agee Pulse Ox Last 24 Hr 98.3 F-99.9 F 96-108 18-21 129-147/58-75 94-98 PHYSICAL EXAM GENERAL: The patient is awake, alert, and fully oriented, in no acute distress. HEAD: Normal with no signs of trauma. EYES: PERRL, extraocular movements intact, sclera anicteric, conjunctiva clear. ENT: Ears normal, nares patent, oropharynx clear without exudates, moist mucous membranes. NECK: Trachea midline, full range of motion, supple. LUNGS: Breath sounds equal, clear to auscultation bilaterally, no wheezes, no crackles, no accessory muscle use. HEART: Regular rate and rhythm, S1, S2 without murmur, rub or gallop. ABDOMEN: Soft, nontender, nondistended, normoactive bowel sounds, no guarding, no rebound, no hepatosplenomegaly, no masses. EXTREMITIES: 2+ pulses, warm, well-perfused, no edema. NEUROLOGICAL: Cranial nerves II through XII grossly intact. Normal speech, gait not observed. PSYCH: Normal mood, normal affect. SKIN: Warm, dry, normal turgor, no rashes or lesions noted. LABS Laboratory Results - last 24 hr 05/26/18 05/26/18 07:24 07:24 WBC 12.0 H RBC 4.08 Hgb 11.7 Hct 36.8 MCV 90.1 MCH 28.7 MCHC 31.9 L RDW 13.7 Plt Count 299 MPV 8.3 Absolute Neuts (auto) 10.0 H Neutrophils % 82.6 Lymphocytes % 10.3 Monocytes % 6.5 Eosinophils % 0.1 Basophils % 0.5 Nucleated RBC % 0 Sodium 133 L Potassium 4.1 Chloride 101 Carbon Dioxide 19 L Anion Gap 14 BUN 9 Creatinine 0.5 L Creat Clearance w eGFR > 60 Random Glucose 102 Calcium 8.4 L Phosphorus 3.3 Magnesium 2.2 HOSPITAL COURSE: Date of Admission:05/24/18 Date of Discharge: 05/26/18 HPI from Initial Consultation: The patient is a 58F w/ a history of HLD who presented for planned surgery. The patient is s/p C5-C6, C6-C7 anterior cervical discectomy and fusion. She currently reports that her pain is well controlled. She denies any weakness or acute change in sensation. Denies recent illness, fevers/chills, vision changes, chest pain, SOB, N/V/C/D. Hospital Course: She was monitored in the ICU post-op for any signs of airway compromise, and remained stable. She was transferred out of the ICU and was monitored on a Med/ Surg floor. Her pain was controlled well and she tolerated her diet well. She was deemed medically safe for discharge with follow up with [facility] on ThursdayJune 04. Minutes to complete discharge: 35 Discharge Summary Reason For Visit: CERVICAL DISC DISORDER Condition: Good - Instructions Diet, Activity, Other Instructions: You were admitted following an orthopedic surgery for your neck pain. Your surgery was uncomplicated and your post op course was also uncomplicated. Your pain has been well controlled and you are tolerating your diet well. At this point you are medically safe for discharge. You should continue all of your home meds as prescribed prior to this hospitalization. You should follow up with your primary care physician within one week of discharge You should follow up with Dr. Arellano: f/u [facility] [place] office Thursday06/04/2018; call for appointment; . If you have any concerning symptoms, you should be evaluated by your doctor or return to the Emergency department. Referrals: Francisco Javier Arellano MD [Staff Physician] - Disposition: HOME - Home Medications Comprehensive Discharge Medication List: Ambulatory Orders Acetaminophen [Tylenol] 1,000 mg PO DAILY 05/11/18 Amitriptyline HCl [Elavil -] 10 mg PO HS 05/11/18 Canagliflozin [Invokana] 300 mg PO DAILY 05/11/18 Letrozole 2.5 mg PO DAILY 05/11/18 Simvastatin 40 mg PO DAILY 05/11/18 Topiramate 25 mg PO HS 05/11/18 Vitamin D - 1.25 mg PO WEEKLY 05/11/18 Ibuprofen/Famotidine [Duexis 800-26.6 mg Tablet] 1 tab PO DAILY 05/25/18 Zolpidem Tartrate [Zolpidem Tartrate ER] 6.25 mg PO HS PRN 05/25/18 Oxycodone HCl/Acetaminophen [Percocet 5-325 mg Tablet] 1 tab PO Q6H #10 tablet MDD 4 tabs 05/26/18 This patient is new to me today: Yes Date on this admission: 05/26/18 Emergency Visit: No Critical Care patient: No - Discharge Referral Referred to [facility] Med P.C.: No
--- NOTE | 2018-05-26 19:01 | EKG ---
Test Reason : Blood Pressure : / mmHG Vent. Rate : 075 BPM Atrial Rate : 075 BPM P-R Int : 216 ms QRS Dur : 084 ms QT Int : 404 ms P-R-T Axes : 027 033 052 degrees QTc Int : 451 ms SINUS RHYTHM WITH 1ST DEGREE A-V BLOCK OTHERWISE NORMAL ECG NO PREVIOUS ECGS AVAILABLE Confirmed by ANGI COLLINS, SANDY ([id number]) on 05/26/2018 7:01:29 PM Referred By: Bipin CHILDRESS Confirmed By:SANDY WHITLEY MD
--- NOTE | 2018-05-26 20:41 | PN ---
Teaching Attending Note Name of Resident: Andrew Capellan ATTENDING PHYSICIAN STATEMENT I saw and evaluated the patient. I reviewed the resident's note and discussed the case with the resident. I agree with the resident's findings and plan as documented. SUBJECTIVE: Feeling better. Pain manageable. No fever/chills. No nausea/ vomiting. Tolerating oral intake. OBJECTIVE: Afebrile, Hemodynamically Stable. Last Vital Signs Temp Pulse Resp BP Pulse Ox 98.6 F 105 H 18 142/64 94 L 05/26/18 17:10 05/26/18 17:10 05/26/18 17:10 05/26/18 17:10 05/26/18 09:00 HEENT - Dressing clean over cervical surgical site. Heart - S1, S2, RRR Lungs - clear to auscultation, no crackles/wheeze. Abdomen - Soft, non-tender. Bowel Sounds normal. Extremities - no edema. no calf tenderness. Neuro -AAO x 3. Tone/Power normal all 4 extremities. Laboratory Results - last 24 hr 05/26/18 05/26/18 07:24 07:24 WBC 12.0 H RBC 4.08 Hgb 11.7 Hct 36.8 MCV 90.1 MCH 28.7 MCHC 31.9 L RDW 13.7 Plt Count 299 MPV 8.3 Absolute Neuts (auto) 10.0 H Neutrophils % 82.6 Lymphocytes % 10.3 Monocytes % 6.5 Eosinophils % 0.1 Basophils % 0.5 Nucleated RBC % 0 Sodium 133 L Potassium 4.1 Chloride 101 Carbon Dioxide 19 L Anion Gap 14 BUN 9 Creatinine 0.5 L Creat Clearance w eGFR > 60 Random Glucose 102 Calcium 8.4 L Phosphorus 3.3 Magnesium 2.2 ASSESSMENT AND PLAN: 58 year old female with HTN, DM 2, L Breast Ca (Stage 1) s/p RTx, HLD, admitted for C-Spine surgery 1. POD 2 s/p C4-C5, C5-C6 discectomies; C4, C5, C6 partial corpectomies; C4-C5 , C5-C6 mechanical devices; C4-C5, C5-C6 arthrodesis; C4-C6 anterior instrumentation; Bone autograft; Bone allograft due to Cervical spinal stenosis C5-C7, Radiculopathy and Myelopathy. Medically stable post-operatively. Pain control with percocet on discharge. Continue PT/OT/Rehab on discharge. No heavy lifting, bending or twisting. f/u [facility] [place] office Thursday06/04/2018; .
--- NOTE | 2018-05-27 | PN ---
Progress Note (short form) - Note Progress Note: 58F s/p C5-C6, C6-C7 anterior cervical discectomy and fusion POD #2. Pain well controlled. No acute events overnight. Pt. denies overnight history of headaches, chest pain, shortness of breath, nausea, vomiting, chills, & sweats. (+) Voiding; (+) Flatus; (-) BM. (+) Walked in jackson. (-) Hoarseness; (-) Dysphagia. Pt. reports total resolution of pre-op LUE radiculopathy symptoms. All labs and vitals reviewed. PE: AAO x 3, NAD. C-Spine: Incision, dressing C/D/I. Drain removed. B/L UE & LE M: C5-T1 & L2-S1 intact. B/L UE & LE S: C5-T1 & L2-S1 2/2. 58F s/p C5-C6, C6-C7 anterior cervical discectomy and fusion POD #2. -Pain control. -Maintain head of bed 45-60 degrees. -Pain medication: per anaesthesia team; no BUSINESS INSTRUCTOR; NO NSAID's. -DVT PPx: -Mechanical only: PATRICIA's, SCD's. -Incentive spirometry. -PT/OT/Rehab, OOB. -WBAT B/L UE & LE. -Keep dressing clean & dry. -No heavy lifting, bending or twisting. -Advance diet as tolerated. -B/L UE & LE NV checks. -Care per primary medical hospitalist teams. -Discharge planning: f/u [facility] [place] office Thursday06/04/2018; call for appointment; . Enrique Arellano MD (Orthopaedic Surgery).
--- NOTE | 2018-05-27 15:37 | PATH ---
Surgical Pathology Report Patient Name: FRANCISCA JONAS [facility]. Rec. #: [id number] /Age/Gender: 1960 (Age: 58) / F Account: [id number] Location: [address] [place] [address] Taken: 05/24/2018 Received: 05/26/2018 Reported: 05/27/2018 Physicians: Enrique Arellano M.D. Specimen(s) Received DISC C5-C7 Clinical History Cervical disc disorder Final Diagnosis DISC, C5-C7, ANTERIOR CERVICAL DISCECTOMY WITH FUSION: BENIGN INTERVERTEBRAL DISC TISSUE. Electronically Signed Megan Garcia M.D. Gross Description Received in formalin labeled "disc C5-C7," is a 4.0 x 3.0 x 0.5 cm aggregate of valle fragments of fibrocartilaginous tissue. A personal financial representative portion is submitted in one cassette. /05/26/201805/26/2018
== END 2018-05-26 19:45 | disposition home or self-care (01) | DRG 472 ==
LOC: JSAMEDAYSX 10:12 → EDSTATUS 12:00 → JICU 17:39 → J6S 05-25 17:53
PROVIDERS: ADMIT Orthopaedic Surgery Adult Reconstructive Orthopaedic Surgery
PROC: 0RG2070 Fusion of 2 or more Cervical Vertebral Joints with Autologous Tissue Substitute, Anterior Approach, Anterior Column, Open Approach (ICD-10-PCS; 2018-05-24)
PROC: 0RT30ZZ Resection of Cervical Vertebral Disc, Open Approach (ICD-10-PCS; 2018-05-24)
PROC: 0RT30ZZ Resection of Cervical Vertebral Disc, Open Approach (ICD-10-PCS; 2018-05-24)
PROC: 4A11X4G Monitoring of Peripheral Nervous Electrical Activity, Intraoperative, External Approach (ICD-10-PCS; 2018-05-24)
PROC: 0RG20K0 Fusion of 2 or more Cervical Vertebral Joints with Nonautologous Tissue Substitute, Anterior Approach, Anterior Column, Open Approach (ICD-10-PCS; principal; 2018-05-24 12:00)
DX: M50.123 Cervical disc disorder at C6-C7 level with radiculopathy (principal); M47.12 Other spondylosis with myelopathy, cervical region; E78.5 Hyperlipidemia, unspecified; G47.33 Obstructive sleep apnea (adult) (pediatric); Z91.14 Patient's other noncompliance with medication regimen
CPT/HCPCS: 36415; 76000-TC-FY; 80048; 82962; 83735; 84100; 85025; 85027; 86850; 86900; 86901; 88304-TC; 93005; 93010; 97116-GP; 97161-GP; J0131; J1644